=== PATIENT | male | born 1945 | race Caucasian/White ===

== ENCOUNTER 2016-10-21 08:40 | Day surgery (SDC) | payer MEDICARE, OTHER ==
[2016-10-21] VITALS (8 sets, daily range): BP systolic 125–138; BP diastolic 62–80; PULSE 33–65; RESP 10–17; O2SAT 95–99
[~2016-10-21] VITALS: Ht 177.8 cm; Wt 83.6 kg
[~2016-10-21 08:40] MED LIST: ASPI-973 PO; Acetaminophen IV 1,000 MG in IV Premix 1 EACH IV ONE; Bupivacaine Liposome 1.3% 20 mL Inj INFILTRATE ONE; CALC600T12 PO; CHOL10008 PO; CeFAZolin Inj 2 GM in IV Premix 1 EACH IV ONE
[2016-10-21] MEDS ORDERED: fentaNYL-PF 50 mCg/mL 2 mL Inj ONE (08:41)
[2016-10-21] MEDS: Lactated Ringer's 1,000 ML IV SCH ×4 (09:18→15:11)
--- NOTE | 2016-10-21 09:39 | PCM.HPANE ---
Patient Data Surgeon Admitting Provider: Attending Provider:Louise Brooks MD Primary Care Physician:Reji Brooks MD Other Provider:[place] [facility] Reason for Visit Urinary Incontinence, Prostate Cancer Ht/WT & BMI Height (Feet): 5 Height (Inches): 10.00 Weight (Kilograms): 83.600 Body Mass Index 26.00 Allergies Coded Allergies: oxycodone (Verified Allergy, Unknown, CANT FUNCTION, 10/21/16) Past Anesthesia History Anesthesia History: Denies:: Anesthesia Reactions, Fam Anesthesia Reaction, Malignant Hyperthermia Diabetes History Hx Diabetes?: No MRSA MRSA: No Medications Blood Thinner: Aspirin Home Meds Incl Beta Caryn: No Reported Medications Cholecalciferol (Vitamin D3) (Vitamin D3)1,000 Unit Tab.chew1,000 Unit PO DAILY 10/17/16 Calcium Carbonate (Calcium)600 Mg [id number] Mg PO DAILY 10/17/16 Aspirin 81 Mg Uwomxm05 Mg PO DAILY Ref 0 10/17/16 Discontinued Reported Medications Cholecalciferol (Vitamin D3) (Vitamin D)1,000 Unit Capsule1,000 Unit PO DAILY # 1 BOTTLE Ref 0 03/20/16 Calcium Carbonate (Calcium)600 Mg [id number] Mg PO DAILY 03/20/16 Multivitamin (Multivitamins)1 Each Capsule1 Each PO DAILY 03/20/16 Naproxen Sodium (Aleve)220 Mg Etczhmp060 Mg PO DIRECTED PRN For Pain 03/20/16 [Antibiotics] No Conflict [id number] Mg PO DIRECTED 5 Days 03/20/16 History History of ENT Problems?: Yes HEENT History: Positive for:: Dysphagia Hx of Heart Problems?: No Cardiovascular History: Denies:: AICD Coronary Artery Disease Edema Heart Murmur Hypertension Irregular Heartbeat Pacemaker Hx of Respiratory Problem?: No Respiratory History: Denies:: Asthma COPD Emphysema Oxygen Administration Pneumonia Tuberculosis Use of C-PAP Machine Use of Inhalers / NEBS Hx Neurologic Problems?: Yes Neurological History: Denies:: CVA Dizziness Headaches Multiple Sclerosis Parkinson's Disease Seizures TIA Other Neurological Pertinent: hx of fall from ladder 6-10 feet 11/2015- concussion hx Hx of GI Problems?: Yes Gastrointestinal History: Positive for:: Rectal Bleeding (hx hemorrhoidectomy) Hx of Problems?: Yes Male Hx: Positive for:: Prostate Problems (s/p RPPL, prostate Ca) Testicular Surgery (hx vasectomy) Denies:: Scrotal Mass Skin History: Denies:: History Skin Disorders? Pressure Ulcers Hx Musculoskeletal Problems?: Yes Musculoskeletal History: Positive for:: Back Injury (hx of C3-6 ACDF 01/2016) Musculoskeletal Trauma (history of horse riding accident 2012- crush injury) Osteoarthritis Denies:: Fibromyalgia Joint Replacement Hx of Psycho/Social Problems?: No Hx Surgeries?: Yes (RRP W/ PLND,PROSTATE BX,HEMORRHOIDECTOMY,VASECTOMY, CIRCUMCISION) Hx Any Other Health Problems?: Yes Other History: Positive for:: Cancer (prostate) Denies:: Endocrine Disease Hospitalization Thyroid Disease History Blood Transfusions: Positive for:: Accept Blood Products? Denies:: Blood Transfuse Reaction Blood Transfusions Hx Diabetes: No Hx Alcohol Use: YesHx Substance Use: No Smoking Status: Never Smoker Have You Smoked inLast 12 mo: No Stop/Bang S-Snoring: Do You Snore Loudly: No T-Tired: feel tired, fatigued: No O-Obsered: Observed not breath: No P-Blood Pressure: treated: No B- Body Mass Index > 35 kg/m2: No A- Age over 50: Yes N- Neck Large Circumference: No G- Gender Male: Yes MIKE Total Score: 2 MIKE Risk Assessment: Low Risk, <3 Yes Risk Assessment Category Category 1A: Patient has history of documented sleep apnea, and HAS NOT received any narcotic, sedative or anesthesia administration during this stay. Category 1B: Patient has history of documented sleep apnea, and HAS received any narcotic , sedative or anesthesia administration during this stay Category 2: Patient has SUSPECTED Obstructive Sleep Apnea, and HAS received any narcotic , sedative or anesthesia administration during this stay. Category 3: Patient has SUSPECTED Obstructive Sleep Apnea and HAS NOT received narcotic, sedative or anesthesia administration during this stay. Category 4: Outpatient in Procedural Areas with known sleep apnea or who screen positive for High Risk via the STOP/BANG questionnaire. Exam Exam Vital Signs Vital Signs Date Time Temp Pulse Resp B/P Pulse Ox O2 Delivery O2 Flow Rate FiO2 10/21/16 09:01 35.7 62 14 130/80 97 Room Air General Appearance: Alert HEENT/AIRWAY: MP 1 Lungs: Clear to Auscultation Heart: Exam Unremarkable Meds/Labs/Diagnostics Admission Meds Current Medications Lactated Ringer's (Lr) 1,000 ml @ 120 mls/hr Q8H20M IV Last administered on t 09:18; Start 10/21/16 at 05:00; Stop 10/21/16 at 13:19 Plan Impression Patient chart reviewed, patient interviewed and anesthestic plan with risks, benefits, and alternatives discussed, and informed consent obtained. NPO Status: 10/20/16 1600 ASA Physical Status: ASA2 Mod Systemic Disease Anesthetic Plan: GA Bene/Risks/Altern/Consents: Yes HP Complete Prior to Induction: Yes Christiano Parra MD Oct 21, 2016 09:39
[2016-10-21] MEDS ORDERED: Bupivacaine Liposome 1.3% 20 mL Inj ONE (12:09)
[2016-10-21] MEDS ORDERED: Bupivacaine-MPF 0.5% W/EPI 30 mL Inj INFILTRATE ONE (13:06)
[2016-10-21] MEDS ORDERED: Gentamicin 40 mg/mL 2 mL Inj IRRIGATION ONE (13:07)
[2016-10-21] MEDS ORDERED: fentaNYL-PF 50 mCg/mL 2 mL Inj IVPUSH PRN (14:10)
[2016-10-21] MEDS ORDERED: Dexamethasone 4 mg/mL Inj IVPUSH PRN (14:10)
[2016-10-21] MEDS ORDERED: Phenylephrine 10,000 mCg/mL Inj IVPUSH PRN (14:10)
[2016-10-21] MEDS ORDERED: Ondansetron 2 mg/mL 2 mL Inj IVPUSH PRN (14:10)
[2016-10-21] MEDS ORDERED: Lactated Ringer's 500 ML IV PRN (14:10)
[2016-10-21] MEDS ORDERED: Lactated Ringer's 1,000 ML IV SCH (14:10)
[2016-10-21] MEDS ORDERED: MetoCLOpramide 5 mg/mL 2 mL Inj IVPUSH PRN (14:10)
[2016-10-21] MEDS ORDERED: EPHEDrine Sulfate 50 mg/mL Inj IVPUSH PRN (14:10)
[2016-10-21] MEDS ORDERED: HYDROmorphone 1 mg/mL Inj IVPUSH PRN (14:10)
[2016-10-21] MEDS ORDERED: HYDROcodone-APAP 5-325 mg Tablet PO PRN (14:35)
--- NOTE | 2016-10-21 15:23 | PCM.ANEP2 ---
Post Anesthesia Evaluation ASA/CMS Post Anesthesia VS in Patient's Normal Range?: Yes Resp Stable; Airway Patent?: Yes CV Function & Hydration Stable: Yes Mental Status Recovered?: Yes Pain control Satisfactory?: Yes N/V Control Satisfactory?: Yes Christiano Parra MD Oct 21, 2016 15:23
--- NOTE | 2016-10-21 15:23 | PCM.ANEP1 ---
Post Anesthesia Phase 1 PACU Phase 1 Assessment Vital Signs Vital Signs Date Time Temp Pulse Resp B/P Pulse Ox O2 Delivery O2 Flow Rate FiO2 10/21/16 15:10 36.2 33 10 136/74 99 Room Air 10/21/16 15:05 61 17 126/71 99 Room Air 10/21/16 15:00 61 10 130/67 98 Room Air 10/21/16 14:55 62 14 125/62 95 Room Air 10/21/16 14:50 36.7 65 14 137/67 96 Room Air 10/21/16 09:01 35.7 62 14 130/80 97 Room Air Anesthetic Administered: GA Level of Alertness: Awake, talking KAYE's with Equal Strength: Yes Pain: Yes Nausea or Vomiting: No Oxygen Delivery: Room Air Lungs: Clear to Auscultation Dermatome Level: Full Sensation Summary 137/67 p73 rr10 97% Christiano Parra MD Oct 21, 2016 15:23
--- NOTE | 2016-11-01 13:43 | OP ---
[address] [address] OPERATIVE REPORT PATIENT: LUANN FARIAS : 1945 MR#: [id number] ADMIT: 10/21/2016 JOB ID: [id number] DATE OF SURGERY: 10/21/2016 PREOPERATIVE DIAGNOSIS(ES): Urinary incontinence. POSTOPERATIVE DIAGNOSIS(ES): Urinary incontinence. OPERATION PERFORMED: Placement AMS 880 artificial urinary sphincter. SURGEON: Louise Brooks MD [employer]UR[employer] MAKER: AMY Charles ANESTHESIA: General plus 1.33% Exparel. IMPLANT DATA: The reservoir was a 61-70 mL placed in the right retropubic space, filled with 25 cc of saline. A 4.0 cm cuff was selected. The control pump was positioned in the midline anterior scrotum. PROCEDURE SUMMARY: The patient was positioned in semi-lithotomy and the lower abdomen, genitalia, and groin were prepped and draped in sterile fashion. A 14-Macanese Garcia catheter was inserted and the contents of the bladder drained. It was then cross-clamped and retracted superiorly, as were the scrotal contents. The midline perineal raphae was then infiltrated with local anesthetic and a midline incision was then made. Sharp cautery and blunt dissection was used to divide the mid midline perineal body down the level of the corpus spongiosum of the bulbar urethra. Careful circumferential dissection was then performed. A window was created anterior to the bulbar urethra, just distal to the external sphincter. The measuring tape was the utilized and a 4 cm cuff was indicated. This was then selected and prepared, as was the reservoir. Next, the skin was infiltrated in the area just over the right pubic tubercle and about a 4-5 cm incision was made transversely in the subcutaneous fat. Elvia's fascia was divided with blunt and cautery dissection. Just above the pubic symphysis on the right the left rectus fascia and musculature was perforated. A small space was developed with blunt dissection in the retropubic space. Now, with the reservoir prepared, this was then positioned in this space and an aperture in the abdominal wall was closed with a [id number] 2-0 Vicryl. The cuff was then positioned and the tubing was then tunneled through the right hemiscrotum and into the right inguinal incision. A pocket for the pump was then created using blunt technique with the approach from the right inguinal incision and the control pump was then positioned appropriately in the midline anterior scrotal position. Now the various connections were created by appropriately trimming the lengths of the hydraulic tubing. They were connected with straight barrel connectors. The connections and associated tubings were then positioned in the deep subcutaneous space. Elvia's fascia was then closed with 2-0 Vicryl over this and the skin was then reapproximated with a running subcuticular 4-0 Monocryl. The system was cycled and the cuff was left partially filled, and then the device was deactivated. The tissues were then closed in four layers using 2-0 PDS in a running fashion. The skin was reapproximated with a running subcuticular of 4-0 Monocryl. A small strip of Telfa was applied to the incision line and OpSite was then applied over it in both locations. The Garcia catheter was removed. The patient was then repositioned supine, awakened, transferred to a gurocala, and transferred to recovery in stable condition.
== END 2016-10-21 23:59 | disposition home or self-care (01) ==
LOC: SAS 08:40
PROVIDERS: ATTEND Specialist
DX: N39.3 Stress incontinence (female) (male) (principal); Z85.46 Personal history of malignant neoplasm of prostate; Z87.440 Personal history of urinary (tract) infections; Z87.891 Personal history of nicotine dependence; Z79.82 Long term (current) use of aspirin
CPT/HCPCS: 53444; C1815; J0131; J0690; J1580; J2250; J3010; J7120